=== PATIENT | female | born 1980 | race Caucasian/White ===

== ENCOUNTER → 2024-10-22 | Outpatient (CLI) | payer OTHER | LOC: M OUTALCOH 08:16 | PROVIDERS: ATTEND Psychiatry & Neurology Psychiatry | DX: F10.20 Alcohol dependence, uncomplicated (principal) ==

== ENCOUNTER 2024-10-31 09:00 | Outpatient (RCR) | payer OTHER | END 2024-11-06 | LOC: M OUTALCOH 09:00 | PROVIDERS: ATTEND Psychiatry & Neurology Psychiatry | DX: F10.20 Alcohol dependence, uncomplicated (principal) ==